=== PATIENT | male | born 1995 ===

== ENCOUNTER 2017-10-20 16:24 | Emergency (ER) | payer OTHER ==
[2017-10-20 16:35] VITALS: BP 110/72; PULSE 76; RESP 18; TEMP 98.3; O2SAT 96
--- NOTE | 2017-10-20 18:33 | C.PDOC ---
History Of Present Illness 22 year old male presents to the ED for evaluation of B/L ankle pain. Patient states he twisted both his ankles today while walking, states his right ankle pain is greater than left ankle pain. Patient denies other injuries, no knee pain, hip pain, LOC, fever, chills. Time Seen by Provider: 10/20/17 16:51 Chief Complaint (Nursing): Lower Extremity Problem/Injury History Per: Patient History/Exam Limitations: no limitations Onset/Duration Of Symptoms: Hrs Current Symptoms Are (Timing): Still Present Recent travel outside of the [place] States: No Additional History Per: Patient - Ankle/Foot Description Of Injury: Twisted Past Medical History Reviewed: Historical Data, Nursing Documentation, Vital Signs Vital Signs: Last Vital Signs Temp 98.3 F 10/20/17 16:33 Pulse 76 10/20/17 16:33 Resp 18 10/20/17 16:33 BP 110/72 10/20/17 16:33 Pulse Ox 96 10/20/17 18:33 - Medical History PMH: No Chronic Diseases Surgical History: No Surg Hx Family History: States: Unknown Family Hx - Social History Hx Alcohol Use: Yes Hx Substance Use: No - Immunization History Hx Tetanus Toxoid Vaccination: No Hx Influenza Vaccination: No Hx Pneumococcal Vaccination: No Review Of Systems Constitutional: Negative for: Fever, Chills Cardiovascular: Negative for: Chest Pain, Palpitations Respiratory: Negative for: Cough, Shortness of Breath Gastrointestinal: Negative for: Nausea, Vomiting, Abdominal Pain Musculoskeletal: Positive for: Foot Pain Skin: Negative for: Rash Neurological: Negative for: Weakness, Numbness Physical Exam - Physical Exam Appears: Non-toxic, No Acute Distress Skin: Normal Color, Warm, Dry Head: Atraumatic, Normacephalic Eye(s): bilateral: Normal Inspection Nose: No Discharge, No Deformity Oral Mucosa: Moist Neck: Normal ROM, Supple Extremity: Normal ROM, Tenderness (right and left medial, lateral malleolus ), No Calf Tenderness, Capillary Refill (< 2 seconds), Swelling (right and left medial, lateral malleolus ), Other (neurovascualr intact) Pulses: Left Dorsalis Pedis: Normal, Right Dorsalis Pedis: Normal Neurological/Psych: Oriented x3, Normal Speech, Normal Cognition Gait: Steady ED Course And Treatment O2 Sat by Pulse Oximetry: 96 (On RA) Pulse Ox Interpretation: Normal - Other Rad ankles X-Ray X-Ray: Interpreted by Me, Viewed By Me Interpretation: Preliminary read as no fracture present. Medical Decision Making Medical Decision Making: Assessment: B/L ankle pain Plan: * Ankle X-Ray * Motrin 600 mg PO * Kumar wrap and crutches Patient will be D/C home with orders to follow up with clinic in 2 days. Disposition Counseled Patient/Family Regarding: Studies Performed, Diagnosis, Need For Followup, Rx Given - Disposition Referrals: [facility] [Outside] Disposition: HOME/ ROUTINE Disposition Time: 18:31 Condition: STABLE Additional Instructions: follow up with your doctor in 2 days call to make an appointment take medications as prescribed return to ER if symptoms worsens or progress rest, ice and elevate Prescriptions: Naproxen [Naprosyn] 500 mg PO BID PRN #16 tab PRN Reason: Pain, Moderate (4-7) Instructions: Ankle Sprain Forms: Gen Discharge Inst Kyrgyz, [facility] (Kyrgyz) Print Language: MONGOLIAN - Clinical Impression Clinical Impression: Sprain - Scribe Statement The provider has reviewed the documentation as recorded by the Scribe Flavio Nova All medical record entries made by the Scribe were at my direction and personally dictated by me. I have reviewed the chart and agree that the record accurately reflects my personal performance of the history, physical exam, medical decision making, and the department course for this patient. I have also personally directed, reviewed, and agree with the discharge instructions and disposition.
--- NOTE | 2017-10-21 13:08 | RAD ---
PROCEDURE: HISTORY: twisting injury COMPARISON: None TECHNIQUE: Three Views each ankle FINDINGS: No fracture or dislocation. Ankle mortise intact bilaterally No focal prominent soft tissue swelling IMPRESSION: No fracture or dislocation appreciated
== END 2017-10-20 19:20 | disposition home or self-care (01) ==
LOC: C.ER 16:24
DX: S93.409A Sprain of unspecified ligament of unspecified ankle, initial encounter (principal); X50.1XXA Overexertion from prolonged static or awkward postures, initial encounter; Y93.01 Activity, walking, marching and hiking